=== PATIENT | male | born 1995 | race African-American/Black ===

== ENCOUNTER 2020-03-07 09:34 | Inpatient (IN) | payer OTHER ==
[~2020-03-07] VITALS: Ht 193 cm; Wt 138.6 kg
[2020-03-07] MEDS ORDERED: IBUPROFEN 800 MG (MOTRIN) TAB PO ONE (10:01)
[2020-03-07] MEDS ORDERED: ACETAMINOPHEN 500 MG TAB (TYLENOL) ONE (10:02)
[2020-03-07] MEDS ORDERED: LACTATED RINGERS 1,000 ML IV ONE ×2 (10:04→10:18)
[2020-03-07] MEDS ORDERED: dexAMETHasone 6 MG TAB (DECADRON) PO STA (10:23)
[2020-03-07 10:24] LABS: BASOPHILS % (AUTO) 0 % (0-10); EOSINOPHILS % (AUTO) 0 % (0-10); HEMATOCRIT 49 % (40-54); HEMOGLOBIN 16.1 G/DL (13.3-17.7); LYMPHOCYTES # (AUTO) 1.9 X 10^3 (1.0-4.0); LYMPHOCYTES % (AUTO) 21 % (12-44); MEAN CORPUSCULAR HEMOGLOBIN 26 PG (25-34); MEAN CORPUSCULAR HGB CONC 33 G/DL (32-36); MEAN CORPUSCULAR VOLUME 81 FL (80-99); MEAN PLATELET VOLUME 10.5 FL (7.4-10.4); MONOCYTES # (AUTO) 0.6 X 10^3 (0.0-1.0); MONOCYTES % (AUTO) 6 % (0-12); NEUTROPHILS # (AUTO) 6.9 X 10^3 (1.8-7.8); NEUTROPHILS % (AUTO) 73 % (42-75); PLATELET COUNT 203 10^3/uL (130-400); WHITE BLOOD COUNT 9.5 10^3/uL (4.3-11.0)
[2020-03-07 10:35] LABS: ALANINE AMINOTRANSFERASE 69 U/L (0-55); ALBUMIN 4.3 GM/DL (3.2-4.5); ALKALINE PHOSPHATASE 58 U/L (40-136); BILIRUBIN,TOTAL 0.6 MG/DL (0.1-1.0); BUN/CREATININE RATIO 16; CALCIUM 9.1 MG/DL (8.5-10.1); CARBON DIOXIDE 26 MMOL/L (21-32); CHLORIDE 98 MMOL/L (98-107); CREATININE SERUM 0.96 MG/DL (0.60-1.30); GFR ESTIMATED > 60; GLUCOSE 101 MG/DL (70-105); POTASSIUM 3.7 MMOL/L (3.6-5.0); SODIUM 135 MMOL/L (135-145)
--- NOTE | 2020-03-07 11:29 | Diagnostic Imaging Report ---
INDICATION: Shortness of breath. TIME OF EXAM: 11:10 a.m. COMPARISON: No prior studies are available for comparison. FINDINGS: There are patchy airspace infiltrates in the right upper lobe as well as the left upper and left lower lobe. Findings are consistent with pneumonia. This pattern can be seen with COVID. No effusion or pneumothorax is detected. Heart size is normal. IMPRESSION: Patchy bilateral airspace pulmonary infiltrates, consistent with pneumonia. This pattern can be seen with COVID pneumonia. Dictated by: Dictated on workstation # [id number]
--- NOTE | 2020-03-07 11:52 | ED Respiratory ---
General Chief Complaint: Fever-Adult/Adol Stated Complaint: SHORTNESS OF BREATH; COVID POSITIVE Nursing Triage Note: pt presents to ed with complaints of soa, fever, malaise, and generalized weakness. pt reports he tested positive for covid on 02/27. pt reports he has not taken any fever reducers today. Source: patient Exam Limitations: no limitations History of Present Illness Date Seen by Provider: Mar 07, 2020 Time Seen by Provider: 10:05 Initial Comments Here with increasing SOA. DX with Covid-19 on Feb, at [facility]. Patient reports that he is having shortness of air with any activity and feels like he's hyperventilating. He is still having Covid symptoms but has regained taste and smell 2 days ago. States that symptoms started 2 days prior to testing and he would be a day 10 currently. Timing/Duration: week, getting worse Severity: moderate Prior Episodes/Possible Cause: no prior episodes Modifying Factors: Worse With Activity; Improves With Rest Associated Symptoms: cough, fever/chills, muscle aches, shortness of breath Allergies and Home Medications Allergies Coded Allergies: No Known Drug Allergies (Unverified , 03/07/20) Home Medications No Active Prescriptions or Reported Meds Patient Home Medication List Home Medication List Reviewed: Yes Review of Systems Review of Systems Constitutional: see HPI, fever, weakness EENTM: see HPI Respiratory: cough, short of breath Cardiovascular: no symptoms reported Gastrointestinal: no symptoms reported Genitourinary: no symptoms reported Musculoskeletal: no symptoms reported All Other Systems Reviewed Negative Unless Noted: Yes Past Dvmicbh-Vxysmr-Ptspxx Hx Past Med/Social Hx: Reviewed Nursing Past Med/Soc Hx Patient Social History Alcohol Use: Denies Use Recreational Drug Use: No Smoking Status: Never a Smoker Recent Foreign Travel: No Contact w/Someone Who Travel: No Recent Infectious Disease Expo: No Recent Hopitalizations: No Seasonal Allergies Seasonal Allergies: No Past Medical History Surgeries: No Respiratory: No Cardiac: Yes High Cholesterol Neurological: No Genitourinary: No Gastrointestinal: No Musculoskeletal: No Endocrine: No Cancer: No Psychosocial: No Integumentary: No Blood Disorders: No Family Medical History Reviewed Nursing Family Hx No Pertinent Family Hx Physical Exam Vital Signs - First Documented 03/07/20 10:00 Temp 39.7 Pulse 131 Resp 26 B/P (MAP) 131/85 (100) Pulse Ox 96 O2 Delivery Nasal Cannula O2 Flow Rate 2.00 Capillary Refill : Less Than 3 Seconds Height: '" Weight: lbs. oz. kg; 40.00 BMI Method: General Appearance: WD/WN, no apparent distress HEENT: PERRL/EOMI, pharynx normal Neck: full range of motion, supple Respiratory: no accessory muscle use, crackles (few basilar bilateral) Cardiovascular: no murmur, tachycardia Gastrointestinal: non tender, soft Extremities: non-tender, normal inspection Neurologic/Psychiatric: alert, oriented x 3 Skin: normal color, warm/dry Progress/Results/Core Measures Suspected Sepsis Recent Fever Within 48 Hours: Yes Infection Criteria Present: Suspected New Infection New/Unexplained Altered Menta: No Sepsis Screen: Possible Sepsis Risk SIRS Temperature: Pulse: 131 Respiratory Rate: 26 Laboratory Tests 03/07/20 10:00: White Blood Count 9.5 Blood Pressure 131 /85 Mean: 100 Laboratory Tests 03/07/20 10:00: Creatinine 0.96, Platelet Count 203, Total Bilirubin 0.6 Results/Orders Lab Results Laboratory Tests Test 03/07/20 10:00 Range/Units White Blood Count 9.5 4.3-11.0 10^3/uL Red Blood Count 6.09 H 4.35-5.85 10^6/uL Hemoglobin 16.1 13.3-17.7 G/DL Hematocrit 49 40-54 % Mean Corpuscular Volume 81 80-99 FL Mean Corpuscular Hemoglobin 26 25-34 PG Mean Corpuscular Hemoglobin Concent 33 32-36 G/DL Red Cell Distribution Width 15.0 H 10.0-14.5 % Platelet Count 203 130-400 10^3/uL Mean Platelet Volume 10.5 H 7.4-10.4 FL Neutrophils (%) (Auto) 73 42-75 % Lymphocytes (%) (Auto) 21 12-44 % Monocytes (%) (Auto) 6 0-12 % Eosinophils (%) (Auto) 0 0-10 % Basophils (%) (Auto) 0 0-10 % Neutrophils # (Auto) 6.9 1.8-7.8 X 10^3 Lymphocytes # (Auto) 1.9 1.0-4.0 X 10^3 Monocytes # (Auto) 0.6 0.0-1.0 X 10^3 Eosinophils # (Auto) 0.0 0.0-0.3 10^3/uL Basophils # (Auto) 0.0 0.0-0.1 10^3/uL Sodium Level 135 135-145 MMOL/L Potassium Level 3.7 3.6-5.0 MMOL/L Chloride Level 98 98-107 MMOL/L Carbon Dioxide Level 26 21-32 MMOL/L Anion Gap 11 5-14 MMOL/L Blood Urea Nitrogen 15 7-18 MG/DL Creatinine 0.96 0.60-1.30 MG/DL Estimat Glomerular Filtration Rate > 60 BUN/Creatinine Ratio 16 Glucose Level 101 70-105 MG/DL Calcium Level 9.1 8.5-10.1 MG/DL Corrected Calcium 8.9 8.5-10.1 MG/DL Total Bilirubin 0.6 0.1-1.0 MG/DL Aspartate Amino Transf (AST/SGOT) 33 5-34 U/L Alanine Aminotransferase (ALT/SGPT) 69 H 0-55 U/L Alkaline Phosphatase 58 40-136 U/L C-Reactive Protein High Sensitivity 4.87 H 0.00-0.50 MG/DL Total Protein 8.0 6.4-8.2 GM/DL Albumin 4.3 3.2-4.5 GM/DL My Orders Orders - HAKAN LAI MD Ibuprofen Tablet (Motrin Tablet) (03/07/20 10:01) Acetaminophen Tablet (Tylenol Tablet) (03/07/20 10:02) Lactated Ringers (Lr 1000 Ml Iv Solution (03/07/20 10:04) Cbc With Automated Diff (03/07/20 10:18) Comprehensive Metabolic Panel (03/07/20 10:18) Hs C Reactive Protein (03/07/20 10:18) Ed Iv/Invasive Line Start (03/07/20 10:18) Lactated Ringers (Lr 1000 Ml Iv Solution (03/07/20 10:18) Chest 1 View, Ap/Pa Only (03/07/20 10:18) Dexamethasone Tablet (Decadron Tablet) (03/07/20 10:23) Medications Given in ED Current Medications Medications Dose Ordered Sig/Brett Route Start Time Stop Time Status Last Admin Dose Admin Acetaminophen 500 mg STK-MED ONCE .ROUTE 03/07/20 10:02 03/07/20 10:06 DC 03/07/20 10:13 1,000 MG Ibuprofen 800 mg STK-MED ONCE PO 03/07/20 10:01 03/07/20 10:06 DC 03/07/20 10:13 800 MG Lactated Ringer's 1,000 ml @ ud STK-MED ONCE IV 03/07/20 10:04 03/07/20 10:08 DC 03/07/20 10:12 999 MLS/HR Vital Signs/I&O 03/07/20 10:00 Temp 39.7 Pulse 131 Resp 26 B/P (MAP) 131/85 (100) Pulse Ox 96 O2 Delivery Nasal Cannula O2 Flow Rate 2.00 Capillary Refill : Less Than 3 Seconds Blood Pressure Mean: 100 Progress Note : Progress Note Seen and evaluated. IV, labs, LR 1 L bolus, ibuprofen 800 mg by mouth and chest x-ray ordered. Monitor patient. 1150: I have discussed the case with Dr. Young and she accepts patient for admission, inpatient status for pneumonia associated with COVID-19 as well as hypoxia. I did discuss the study drug, Remdesivir, and including risk and benefits and patient has consented for medication. This was discussed with Dr. Young at her request and she was notified that he has accepted option of study medicine. Decadron 6 mg by mouth given. Patient on 2 L via nasal cannula to keep sats greater than 94% and this is working well. Patient agrees to admission. Diagnostic Imaging Diagonstic Imaging: Xray Plain Films/CT/US/NM/MRI: chest Comments [facility]. [place], [place] NAME: MORIAH LI [facility] REC#: [id number] PT STATUS: REG ER : 1995 PHYSICIAN: HAKAN LAI MD ADMIT DATE: 03/07/20/ER Draft Date of Exam:03/07/20 CHEST 1 VIEW, AP/PA ONLY INDICATION: Shortness of breath. TIME OF EXAM: 11:10 a.m. COMPARISON: No prior studies are available for comparison. FINDINGS: There are patchy airspace infiltrates in the right upper lobe as well as the left upper and left lower lobe. Findings are consistent with pneumonia. This pattern can be seen with COVID. No effusion or pneumothorax is detected. Heart size is normal. IMPRESSION: Patchy bilateral airspace pulmonary infiltrates, consistent with pneumonia. This pattern can be seen with COVID pneumonia. Dictated on workstation # [id number] Dict: 03/07/20 1124 Trans: 03/07/20 1129 [id number] Interpreted by: ADELAIDA FARNSWORTH MD Electronically signed by: Departure Communication (Admissions) Time/Spoke to Admitting Phy: 11:50 Impression Primary Impression: 2019 novel coronavirus detected Additional Impression: Hypoxia Disposition: ADMITTED INPATIENT Condition: Stable Admissions Decision to Admit Reason: Admit from ER (General) Decision to Admit/Date: Mar 07, 2020 Time/Decision to Admit Time: 11:30 Departure-Patient Inst. Scripts No Active Prescriptions or Reported Meds HAKAN LAI MD Mar 07, 2020 11:52
--- NOTE | 2020-03-07 12:35 | NUR ---
ATTEMPTED TO CALL FOR REPORT. NO ANSWER X2 TIMES
--- NOTE | 2020-03-07 14:15 | NUR ---
GM LI admitted to room 428-1, with an admitting diagnosis of COVID19, HYPOXIA, on 03/07/20 from ED via WHEELCHAIR, accompanied by MED SURG WIRE SPRING RELAY ADJUSTER .GM LI introduced to surroundings, call light, bed controls, phone, TV, temperature control, lights, meal times, smoking policy, visitor policy, side rail policy, bathrooms and showers. Patient Rights given to patient in the handbook. GM LI verbalizes understanding that [facility] is not responsible for the loss or damage to any personal effects or valuables that are kept in the patients possession during their hospitalization. The following Patient Care Plans were discussed with the PATIENT: Discharge Planning, COVID/HYPOXIA and KNOWLEDGE DEFICIT. GM LI verbalizes understanding of Interdisciplinary Patient Education. Patient and/or family were informed about the Rapid Response Team and its purpose.
[2020-03-07 14:24] VITALS: BP 143/77
[2020-03-07] MEDS ORDERED: guaiFENesin/CODEINE (ROBITUSSIN AC) 10ML UDC PO PRN (14:30)
[2020-03-07] MEDS ORDERED: ONDANSETRON 4 MG/2 ML (SDV) Z0FRAN IV PRN (14:30)
[2020-03-07] MEDS ORDERED: REMDESIVIR INJ (NON-FORMULARY) 200 MG in NS (IVPB) 210 ML IV NR (14:30)
[2020-03-07] MEDS ORDERED: ACETAMINOPHEN 325 MG TABLET PO PRN (14:30)
[2020-03-07] MEDS: ENOXAPARIN 40 MG/0.4 ML (LOVENOX) SYR SC SCH (15:45)
[2020-03-07 15:57] VITALS: BP 129/70
[2020-03-07] MEDS ORDERED: CATHETER FLUSH 10 ML SYR IV PRN (17:15)
--- NOTE | 2020-03-07 18:12 | NUR ---
VERIFIED WITH DR WILSON THAT THE PATIENT IS SALINE LOCKED. NO IV FLUID ORDERED.
[2020-03-07 19:30] VITALS: BP 135/78
[2020-03-07] MEDS: CATHETER FLUSH 10 ML SYR IV SCH (21:20)
[2020-03-07 23:44] VITALS: BP 150/80
[2020-03-07 23:55] VITALS: BP 129/81
[2020-03-08 04:25] VITALS: BP 133/76
[2020-03-08] MEDS: CATHETER FLUSH 10 ML SYR IV SCH ×3 (05:28→20:43)
[2020-03-08 06:40] LABS: BASOPHILS % (AUTO) 0 % (0-10); EOSINOPHILS % (AUTO) 0 % (0-10); HEMATOCRIT 47 % (40-54); HEMOGLOBIN 15.4 G/DL (13.3-17.7); LYMPHOCYTES # (AUTO) 1.6 X 10^3 (1.0-4.0); LYMPHOCYTES % (AUTO) 16 % (12-44); MEAN CORPUSCULAR HEMOGLOBIN 26 PG (25-34); MEAN CORPUSCULAR HGB CONC 33 G/DL (32-36); MEAN CORPUSCULAR VOLUME 81 FL (80-99); MEAN PLATELET VOLUME 10.3 FL (7.4-10.4); MONOCYTES # (AUTO) 0.6 X 10^3 (0.0-1.0); MONOCYTES % (AUTO) 6 % (0-12); NEUTROPHILS % (AUTO) 79 % (42-75); PLATELET COUNT 228 10^3/uL (130-400); WHITE BLOOD COUNT 10.1 10^3/uL (4.3-11.0)
[2020-03-08 06:54] LABS: ALANINE AMINOTRANSFERASE 77 U/L (0-55); ALBUMIN 3.9 GM/DL (3.2-4.5); ALKALINE PHOSPHATASE 51 U/L (40-136); BILIRUBIN,TOTAL 0.5 MG/DL (0.1-1.0); BUN/CREATININE RATIO 18; CARBON DIOXIDE 27 MMOL/L (21-32); CHLORIDE 102 MMOL/L (98-107); GFR ESTIMATED > 60; GLUCOSE 111 MG/DL (70-105); SODIUM 139 MMOL/L (135-145); TOTAL PROTEIN 7.3 GM/DL (6.4-8.2)
[2020-03-08 07:33] VITALS: BP_SYST 118; BP_SYST 135; BP_DIAS 58; BP_DIAS 82
[2020-03-08] MEDS ORDERED: dexAMETHasone 6 MG TAB (DECADRON) PO SCH (08:00)
[2020-03-08] MEDS: dexAMETHasone 6 MG TAB (DECADRON) PO SCH (09:02)
[2020-03-08] MEDS ORDERED: MULT-1112 PO (10:08)
[2020-03-08] MEDS ORDERED: IBUP-2185 PO (10:08)
[2020-03-08] MEDS ORDERED: ACET-2267 PO (10:08)
--- NOTE | 2020-03-08 10:09 | NUR ---
SPOKE WITH THE PT ( I CALLED THE ROOM PHONE) TO COMPLETE THE MED REC PT DENIES TAKING ANY PRESCRIPTION MEDICATIONS OTC MEDS: TYLENOL IBUPROFEN MTV PT REQUESTED [facility] FOR HIS PREFERRED PHARMACY
[2020-03-08 12:20] VITALS: BP 135/77
--- NOTE | 2020-03-08 13:06 | History & Physical-Hospitalist ---
History of Present Illness HPI/Chief Complaint Pt is a 24yoCM with a PMH of HLD who presented to the ER due to SOB. He reports his symptoms started on 02/25 and he was diagnosed with COVID on 02/27. He has been having intermittent fevers and yesterday had worsening shortness of breath. He was more dyspneic with exertion prompting him to seek evaluation in the ER. He w as found to be hypoxic in the ER and was admitted for further care. Today he states he feeling about the same. Has regained his sense of taste but still does not have much of an appetite. He has not really been out of bed yet. Source: patient Exam Limitations: no limitations Date Seen 03/08/20 Time Seen by a Provider: 12:58 Attending Physician Lay Young MD PCP Unknown Referring Physician Date of Admission Mar 07, 2020 at 12:17 Home Medications & Allergies Home Medications Reviewed patient Home Medication Reconciliation performed by pharmacy medication reconciliations limited radiology technician and/or nursing. Patients Allergies have been reviewed. Allergies Allergies Coded Allergies No Known Drug Allergies (Unverified03/07/20) Past Nejhtup-Cugpbt-Fibtns Hx Past Med/Social Hx: Reviewed Nursing Past Med/Soc Hx Patient Social History Employed/Student: employed Alcohol Use: Denies Use Recreational Drug Use: No Smoking Status: Never a Smoker Recent Foreign Travel: No Contact w/other who traveled: No Recent Hopitalizations: No Recent Infectious Disease Expo: No Seasonal Allergies Seasonal Allergies: No Past Medical History Cardiac: High Cholesterol History of Blood Disorders: No Family History Reviewed Nursing Family Hx Cardiovascular disease 19 MOTHER Diabetes mellitus 19 FATHER No Pertinent Family Hx Review of Systems Constitutional: fever, malaise EENTM: other (transient loss of taste) Respiratory: cough, dyspnea on exertion, short of breath Cardiovascular: No chest pain Gastrointestinal: loss of appetite, nausea; No vomiting Genitourinary: no symptoms reported Musculoskeletal: no symptoms reported Skin: no symptoms reported Psychiatric/Neurological: No Symptoms Reported Physical Exam Physical Exam Vital Signs Vital Signs - First Documented 03/07/20 03/08/20 10:00 15:15 Temp 39.7 Pulse 131 Resp 26 B/P (MAP) 131/85 (100) Pulse Ox 96 O2 Delivery Nasal Cannula O2 Flow Rate 2.00 FiO2 28 Capillary Refill : Less Than 3 Seconds Height, Weight, BMI Height: '" Weight: lbs. oz. kg; 38.44 BMI Method: General Appearance: No Apparent Distress, Obese HEENT: PERRL/EOMI, Moist Mucous Membranes; No Scleral Icterus (L), No Scleral Icterus (R) Neck: Normal Inspection, Supple Respiratory: Lungs Clear, No Accessory Muscle Use, No Respiratory Distress Cardiovascular: Regular Rate, Rhythm, No JVD, No Murmur Gastrointestinal: Normal Bowel Sounds, Non Tender, Soft Extremity: No Calf Tenderness, No Pedal Edema Neurologic/Psychiatric: Alert, Oriented x3, Depressed Affect Skin: Normal Color, Warm/Dry Results Results/Procedures Labs Laboratory Tests 03/07/20 10:00 03/08/20 06:09 Patient resulted labs reviewed. Imaging: Reviewed Imaging Report Imaging [facility] [place] NAME: GM LI [facility] REC#: [id number] PT STATUS: ADM IN : 1995 PHYSICIAN: HAKAN LAI MD ADMIT DATE: 03/07/20 Signed Date of Exam:03/07/20 CHEST 1 VIEW, AP/PA ONLY INDICATION: Shortness of breath. TIME OF EXAM: 11:10 a.m. COMPARISON: No prior studies are available for comparison. FINDINGS: There are patchy airspace infiltrates in the right upper lobe as well as the left upper and left lower lobe. Findings are consistent with pneumonia. This pattern can be seen with COVID. No effusion or pneumothorax is detected. Heart size is normal. IMPRESSION: Patchy bilateral airspace pulmonary infiltrates, consistent with pneumonia. This pattern can be seen with COVID pneumonia. Dictated by: Dictated on workstation # [id number] Dict: 03/07/20 1124 Trans: 03/07/20 1523 [id number] Interpreted by: ADELAIDA FARNSWORTH MD Electronically signed by: ADELAIDA FARNSWORTH MD 03/07/20 1523 Assessment/Plan Admission Diagnosis Acute Hypoxic Respiratory Failure Admission Status: Inpatient Order (span 2 midnights) Reason for Inpatient Admission: see below Assessment and Plan Acute Hypoxic Respiratory Failure COVID19 Continue oxygen supplementation, wean as able MAT protocol, IS ordered Continue Remdesivir Discussed potential convalescent plasma, including risks and benefits and EUA status, he reports he would like to think about it before doing it Lovenox Decadon DVT ppx: Lovenox Diagnosis/Problems Diagnosis/Problems (1) Hyperlipidemia Qualifiers: Hyperlipidemia type: unspecified Qualified Codes: E78.5 - Hyperlipidemia, unspecified (2) 2019 novel coronavirus detected Status: Acute (3) Acute respiratory failure Status: Acute Qualifiers: Respiratory failure complication: hypoxia Qualified Codes: J96.01 - Acute respiratory failure with hypoxia Clinical Quality Measures DVT/VTE Risk/Contraindication: Risk Factor Score Per Nursin RFS Level Per Nursing on Admit: 1=Low/No VTE PPX LAY YOUNG MD Mar 08, 2020 13:06
[2020-03-08] MEDS: REMDESIVIR INJ (NON-FORMULARY) 100 MG in NS (IVPB) 230 ML IV SCH (14:54)
[2020-03-08 15:15] VITALS: BP 135/77
[2020-03-08 15:38] VITALS: BP 144/80
[2020-03-08] MEDS: ENOXAPARIN 40 MG/0.4 ML (LOVENOX) SYR SC SCH (16:03)
[2020-03-08 19:22] VITALS: BP 144/78
[2020-03-08] MEDS: RT-ALBUTEROL INHALER HFA (VENTOLIN HFA) 18 GM IH SCH (19:57)
[2020-03-09] VITALS (7 sets, daily range): BP systolic 127–149; BP diastolic 72–89
[2020-03-09] MEDS: RT-ALBUTEROL INHALER HFA (VENTOLIN HFA) 18 GM IH SCH ×4 (01:46→21:48)
[2020-03-09] MEDS: CATHETER FLUSH 10 ML SYR IV SCH ×3 (05:20→21:32)
[2020-03-09 06:28] LABS: BASOPHILS % (AUTO) 0 % (0-10); EOSINOPHILS % (AUTO) 0 % (0-10); HEMATOCRIT 45 % (40-54); HEMOGLOBIN 14.7 G/DL (13.3-17.7); LYMPHOCYTES # (AUTO) 1.5 X 10^3 (1.0-4.0); LYMPHOCYTES % (AUTO) 19 % (12-44); MEAN CORPUSCULAR HEMOGLOBIN 27 PG (25-34); MEAN CORPUSCULAR HGB CONC 33 G/DL (32-36); MEAN CORPUSCULAR VOLUME 81 FL (80-99); MEAN PLATELET VOLUME 10.4 FL (7.4-10.4); MONOCYTES # (AUTO) 0.7 X 10^3 (0.0-1.0); MONOCYTES % (AUTO) 9 % (0-12); NEUTROPHILS # (AUTO) 5.4 X 10^3 (1.8-7.8); NEUTROPHILS % (AUTO) 71 % (42-75); PLATELET COUNT 220 10^3/uL (130-400); WHITE BLOOD COUNT 7.6 10^3/uL (4.3-11.0)
[2020-03-09 06:39] LABS: ALBUMIN 3.8 GM/DL (3.2-4.5); CHLORIDE 105 MMOL/L (98-107); POTASSIUM 4.1 MMOL/L (3.6-5.0); SODIUM 141 MMOL/L (135-145)
[2020-03-09 06:40] LABS: CALCIUM 9.2 MG/DL (8.5-10.1)
[2020-03-09 06:41] LABS: GLUCOSE 125 MG/DL (70-105); TOTAL PROTEIN 7.2 GM/DL (6.4-8.2)
[2020-03-09 06:42] LABS: CARBON DIOXIDE 24 MMOL/L (21-32)
[2020-03-09 06:43] LABS: BILIRUBIN,TOTAL 0.4 MG/DL (0.1-1.0)
[2020-03-09 06:45] LABS: ALKALINE PHOSPHATASE 48 U/L (40-136); CREATININE SERUM 0.75 MG/DL (0.60-1.30); GFR ESTIMATED > 60
[2020-03-09 06:46] LABS: BUN/CREATININE RATIO 19
[2020-03-09 06:48] LABS: ALANINE AMINOTRANSFERASE 61 U/L (0-55)
[2020-03-09] MEDS: dexAMETHasone 6 MG TAB (DECADRON) PO SCH (09:19)
--- NOTE | 2020-03-09 10:55 | Progress Note - Hospitalist ---
Subjective HPI/CC On Admission Date Seen by Provider: Mar 09, 2020 Time Seen by Provider: 09:00 Pt is a 24yoCM with a PMH of HLD who presented to the ER due to SOB. He reports his symptoms started on 02/25 and he was diagnosed with COVID on 02/27. He has been having intermittent fevers and yesterday had worsening shortness of breath. He was more dyspneic with exertion prompting him to seek evaluation in the ER. He was found to be hypoxic in the ER and was admitted for further care. Today he states he feeling about the same. Has regained his sense of taste but still does not have much of an appetite. He has not really been out of bed yet. Subjective/Events-last exam Pt doing pretty well Tolerating antiviral for Covid Maintained on oxygen 2L per minute Has not made his decision about plasma infusion Review of Systems General: Fatigue, Malaise Neurological: Weakness Objective Exam Vital Signs Vital Signs Date Time Temp Pulse Resp B/P (MAP) Pulse Ox O2 Delivery O2 Flow Rate FiO2 03/09/20 20:10 35.5 66 18 149/89 (109) 94 Nasal Cannula 2.00 03/08/20 15:15 28 Capillary Refill : Less Than 3 Seconds General Appearance: No Apparent Distress, WD/WN HEENT: PERRL/EOMI, TMs Normal, Normal ENT Inspection, Pharynx Normal, Moist Mucous Membranes Neck: Full Range of Motion, Normal Inspection, Non Tender, Supple, Carotid Bruit Respiratory: Chest Non Tender, Lungs Clear, Normal Breath Sounds, No Accessory Muscle Use, No Respiratory Distress Cardiovascular: Regular Rate, Rhythm, No Edema, No Gallop, No JVD, No Murmur, Normal Peripheral Pulses Gastrointestinal: Normal Bowel Sounds, No Organomegaly, No Pulsatile Mass, Non Tender, Soft Back: Normal Inspection, No CVA Tenderness, No Vertebral Tenderness Extremity: Normal Capillary Refill, Normal Inspection, Normal Range of Motion, Non Tender, No Calf Tenderness, No Pedal Edema Neurologic/Psychiatric: Alert, Oriented x3, No Motor/Sensory Deficits, Normal Mood/Affect Skin: Normal Color, Warm/Dry Lymphatic: No Adenopathy Results/Procedures Lab Laboratory Tests 03/09/20 06:10 Patient resulted labs reviewed. Imaging: Reviewed Imaging Report Assessment/Plan Assessment and Plan Assess & Plan/Chief Complaint Assessment: COVID-19 pneumonia Hypoxia Obesity Plan: Oxygen Supportive care Antiviral Plasma if he is willing Clinical Quality Measures DVT/VTE Risk/Contraindication: Risk Factor Score Per Nursin RFS Level Per Nursing on Admit: 1=Low/No VTE PPX YARITZA MERCADO DO Mar 09, 2020 10:55
[2020-03-09] MEDS: REMDESIVIR INJ (NON-FORMULARY) 100 MG in NS (IVPB) 230 ML IV SCH (15:06)
[2020-03-09] MEDS: ENOXAPARIN 40 MG/0.4 ML (LOVENOX) SYR SC SCH (15:07)
[2020-03-10] MEDS: RT-ALBUTEROL INHALER HFA (VENTOLIN HFA) 18 GM IH SCH ×4 (03:00→18:18)
[2020-03-10 04:10] VITALS: BP 126/78
--- NOTE | 2020-03-10 05:41 | Progress Note - Hospitalist ---
Subjective HPI/CC On Admission Date Seen by Provider: Mar 10, 2020 Time Seen by Provider: 11:00 Pt is a 24yoCM with a PMH of HLD who presented to the ER due to SOB. He reports his symptoms started on 02/25 and he was diagnosed with COVID on 02/27. He has been having intermittent fevers and yesterday had worsening shortness of breath. He was more dyspneic with exertion prompting him to seek evaluation in the ER. He was found to be hypoxic in the ER and was admitted for further care. Today he states he feeling about the same. Has regained his sense of taste but still does not have much of an appetite. He has not really been out of bed yet. Subjective/Events-last exam Labs ok Patient feels good Watching Netflix to keep himself busy Gets dyspneic when walking in room Told him to start getting up and around in order to help build stamina and help wean O2 Lovenox maintained Monitor closely Review of Systems Pulmonary: Dyspnea, Cough Objective Exam Vital Signs Vital Signs Date Time Temp Pulse Resp B/P (MAP) Pulse Ox O2 Delivery O2 Flow Rate FiO2 03/10/20 15:48 36.8 90 20 134/71 (92) 94 Nasal Cannula 3.00 03/08/20 15:15 28 Capillary Refill : Less Than 3 Seconds General Appearance: No Apparent Distress, WD/WN, Chronically ill Respiratory: Chest Non Tender, Lungs Clear, Normal Breath Sounds, No Accessory Muscle Use, No Respiratory Distress, Decreased Breath Sounds Cardiovascular: Regular Rate, Rhythm, No Edema, No Gallop, No JVD, No Murmur, Normal Peripheral Pulses Neurologic/Psychiatric: Alert, Oriented x3, No Motor/Sensory Deficits, Normal Mood/Affect Results/Procedures Lab Laboratory Tests 03/10/20 05:35 Patient resulted labs reviewed. Imaging: Reviewed Imaging Report Assessment/Plan Assessment and Plan Assess & Plan/Chief Complaint Assessment: COVID-19 pneumonia Hypoxia Obesity Plan: Oxygen Supportive care Antiviral Ambulate in room Clinical Quality Measures DVT/VTE Risk/Contraindication: Risk Factor Score Per Nursin RFS Level Per Nursing on Admit: 1=Low/No VTE PPX YARITZA MERCADO DO Mar 10, 2020 05:41
[2020-03-10] MEDS: CATHETER FLUSH 10 ML SYR IV SCH ×3 (05:48→20:42)
[2020-03-10 06:16] LABS: BASOPHILS % (AUTO) 0 % (0-10); EOSINOPHILS % (AUTO) 0 % (0-10); HEMATOCRIT 46 % (40-54); LYMPHOCYTES # (AUTO) 2.1 X 10^3 (1.0-4.0); LYMPHOCYTES % (AUTO) 21 % (12-44); MEAN CORPUSCULAR HEMOGLOBIN 26 PG (25-34); MEAN CORPUSCULAR HGB CONC 32 G/DL (32-36); MEAN CORPUSCULAR VOLUME 81 FL (80-99); MEAN PLATELET VOLUME 10.1 FL (7.4-10.4); MONOCYTES # (AUTO) 0.9 X 10^3 (0.0-1.0); MONOCYTES % (AUTO) 9 % (0-12); NEUTROPHILS # (AUTO) 6.9 X 10^3 (1.8-7.8); NEUTROPHILS % (AUTO) 69 % (42-75); PLATELET COUNT 256 10^3/uL (130-400); WHITE BLOOD COUNT 9.9 10^3/uL (4.3-11.0)
[2020-03-10 06:28] LABS: ALBUMIN 3.6 GM/DL (3.2-4.5)
[2020-03-10 06:29] LABS: CHLORIDE 105 MMOL/L (98-107); POTASSIUM 3.9 MMOL/L (3.6-5.0); SODIUM 141 MMOL/L (135-145)
[2020-03-10 06:30] LABS: CALCIUM 8.8 MG/DL (8.5-10.1)
[2020-03-10 06:31] LABS: GLUCOSE 109 MG/DL (70-105); TOTAL PROTEIN 6.9 GM/DL (6.4-8.2)
[2020-03-10 06:32] LABS: CARBON DIOXIDE 24 MMOL/L (21-32)
[2020-03-10 06:33] LABS: BILIRUBIN,TOTAL 0.3 MG/DL (0.1-1.0)
[2020-03-10 06:34] LABS: ALKALINE PHOSPHATASE 49 U/L (40-136)
[2020-03-10 06:35] LABS: CREATININE SERUM 0.72 MG/DL (0.60-1.30); GFR ESTIMATED > 60
[2020-03-10 06:36] LABS: BUN/CREATININE RATIO 18
[2020-03-10 06:37] LABS: ALANINE AMINOTRANSFERASE 84 U/L (0-55)
[2020-03-10 07:24] VITALS: BP 124/72
[2020-03-10] MEDS: dexAMETHasone 6 MG TAB (DECADRON) PO SCH (09:10)
[2020-03-10 11:10] VITALS: BP 126/73
[2020-03-10] MEDS: REMDESIVIR INJ (NON-FORMULARY) 100 MG in NS (IVPB) 230 ML IV SCH (14:47)
[2020-03-10] MEDS: ENOXAPARIN 40 MG/0.4 ML (LOVENOX) SYR SC SCH (14:47)
[2020-03-10 15:48] VITALS: BP 134/71
[2020-03-10 19:58] VITALS: BP 134/75
[2020-03-10 23:20] VITALS: BP 142/91
[2020-03-11] MEDS: RT-ALBUTEROL INHALER HFA (VENTOLIN HFA) 18 GM IH PRN (02:16)
[2020-03-11] MEDS: CATHETER FLUSH 10 ML SYR IV SCH ×3 (05:12→20:45)
--- NOTE | 2020-03-11 06:51 | Progress Note - Hospitalist ---
Subjective HPI/CC On Admission Date Seen by Provider: Mar 11, 2020 Time Seen by Provider: 10:30 Pt is a 24yoCM with a PMH of HLD who presented to the ER due to SOB. He reports his symptoms started on 02/25 and he was diagnosed with COVID on 02/27. He has been having intermittent fevers and yesterday had worsening shortness of breath. He was more dyspneic with exertion prompting him to seek evaluation in the ER. He was found to be hypoxic in the ER and was admitted for further care. Today he states he feeling about the same. Has regained his sense of taste but still does not have much of an appetite. He has not really been out of bed yet. Subjective/Events-last exam Patient had been doing well Off O2 since yesterday afternoon but RN noted 88% on room air when she assessed him so he is back on O2 Patient agreeable for convalescent plasma now so ordered that Patient will get out of bed more and get more activity while in room No pain reported Eating and drinking well Review of Systems Pulmonary: Dyspnea Objective Exam Vital Signs Vital Signs Date Time Temp Pulse Resp B/P (MAP) Pulse Ox O2 Delivery O2 Flow Rate FiO2 03/11/20 15:21 36.2 71 16 148/72 (97) Nasal Cannula 1.00 03/11/20 15:04 96 03/08/20 15:15 28 Capillary Refill : Less Than 3 Seconds General Appearance: No Apparent Distress, WD/WN Respiratory: Chest Non Tender, Lungs Clear, Normal Breath Sounds, No Accessory Muscle Use, No Respiratory Distress, Decreased Breath Sounds Cardiovascular: Regular Rate, Rhythm, No Edema, No Gallop, No JVD, No Murmur, Normal Peripheral Pulses Neurologic/Psychiatric: Alert, Oriented x3, No Motor/Sensory Deficits, Normal Mood/Affect Results/Procedures Lab Laboratory Tests 03/11/20 12:15 Patient resulted labs reviewed. Imaging: Reviewed Imaging Report Assessment/Plan Assessment and Plan Assess & Plan/Chief Complaint Assessment: COVID-19 pneumonia Hypoxia Obesity Plan: Oxygen Supportive care Antiviral Ambulate in room 03/11/20: Ambulate in room Wean O2 if able Patient now willing to try convalescent plasma Clinical Quality Measures DVT/VTE Risk/Contraindication: Risk Factor Score Per Nursin RFS Level Per Nursing on Admit: 1=Low/No VTE PPX YARITZA MERCADO DO Mar 11, 2020 06:51
[2020-03-11 08:41] VITALS: BP 145/73
[2020-03-11] MEDS: RT-ALBUTEROL INHALER HFA (VENTOLIN HFA) 18 GM IH SCH ×3 (08:57→23:20)
[2020-03-11] MEDS: dexAMETHasone 6 MG TAB (DECADRON) PO SCH (09:55)
[2020-03-11 11:06] VITALS: BP 132/67
[2020-03-11 12:36] LABS: BASOPHILS # (AUTO) 0.1 10^3/uL (0.0-0.1); BASOPHILS % (AUTO) 0 % (0-10); EOSINOPHILS % (AUTO) 0 % (0-10); HEMATOCRIT 48 % (40-54); HEMOGLOBIN 16.1 G/DL (13.3-17.7); LYMPHOCYTES # (AUTO) 2.5 X 10^3 (1.0-4.0); LYMPHOCYTES % (AUTO) 16 % (12-44); MEAN CORPUSCULAR HEMOGLOBIN 27 PG (25-34); MEAN CORPUSCULAR HGB CONC 33 G/DL (32-36); MEAN CORPUSCULAR VOLUME 82 FL (80-99); MEAN PLATELET VOLUME 9.9 FL (7.4-10.4); MONOCYTES % (AUTO) 7 % (0-12); NEUTROPHILS % (AUTO) 77 % (42-75); PLATELET COUNT 307 10^3/uL (130-400); WHITE BLOOD COUNT 15.6 10^3/uL (4.3-11.0)
[2020-03-11 12:54] LABS: ALBUMIN 3.9 GM/DL (3.2-4.5)
[2020-03-11 12:55] LABS: CHLORIDE 107 MMOL/L (98-107); SODIUM 139 MMOL/L (135-145)
[2020-03-11 12:57] LABS: GLUCOSE 109 MG/DL (70-105); TOTAL PROTEIN 7.5 GM/DL (6.4-8.2)
[2020-03-11 12:58] LABS: CARBON DIOXIDE 20 MMOL/L (21-32)
[2020-03-11 12:59] LABS: BILIRUBIN,TOTAL 0.4 MG/DL (0.1-1.0)
[2020-03-11 13:00] LABS: ALKALINE PHOSPHATASE 52 U/L (40-136)
[2020-03-11 13:01] LABS: CREATININE SERUM 0.71 MG/DL (0.60-1.30); GFR ESTIMATED > 60
[2020-03-11 13:02] LABS: BUN/CREATININE RATIO 20; LYMPHOCYTES % (MANUAL) 19 %; MONOCYTES % (MANUAL) 3 %; NEUTROPHILS % (MANUAL) 78 %; RBC MORPH NORMAL
[2020-03-11 13:03] LABS: ALANINE AMINOTRANSFERASE 100 U/L (0-55)
[2020-03-11] MEDS: REMDESIVIR INJ (NON-FORMULARY) 100 MG in NS (IVPB) 230 ML IV SCH (15:20)
[2020-03-11 15:21] VITALS: BP 148/72
[2020-03-11] MEDS: ENOXAPARIN 40 MG/0.4 ML (LOVENOX) SYR SC SCH (16:30)
[2020-03-11 20:23] VITALS: BP 142/83
[2020-03-12 00:40] VITALS: BP 133/78
[2020-03-12] MEDS: RT-ALBUTEROL INHALER HFA (VENTOLIN HFA) 18 GM IH PRN (02:36)
[2020-03-12] MEDS: RT-ALBUTEROL INHALER HFA (VENTOLIN HFA) 18 GM IH SCH ×2 (02:37→06:15)
[2020-03-12 03:26] VITALS: BP 138/78
[2020-03-12] MEDS: CATHETER FLUSH 10 ML SYR IV SCH (04:54)
[2020-03-12 07:12] LABS: BASOPHILS % (AUTO) 0 % (0-10); EOSINOPHILS # (AUTO) 0.1 10^3/uL (0.0-0.3); EOSINOPHILS % (AUTO) 0 % (0-10); HEMATOCRIT 47 % (40-54); HEMOGLOBIN 14.9 G/DL (13.3-17.7); LYMPHOCYTES % (AUTO) 23 % (12-44); MEAN CORPUSCULAR HEMOGLOBIN 26 PG (25-34); MEAN CORPUSCULAR HGB CONC 32 G/DL (32-36); MEAN CORPUSCULAR VOLUME 82 FL (80-99); MEAN PLATELET VOLUME 9.8 FL (7.4-10.4); MONOCYTES % (AUTO) 8 % (0-12); NEUTROPHILS # (AUTO) 8.7 X 10^3 (1.8-7.8); NEUTROPHILS % (AUTO) 68 % (42-75); PLATELET COUNT 282 10^3/uL (130-400); WHITE BLOOD COUNT 12.8 10^3/uL (4.3-11.0)
[2020-03-12 07:31] LABS: ALANINE AMINOTRANSFERASE 101 U/L (0-55); ALBUMIN 3.5 GM/DL (3.2-4.5); ALKALINE PHOSPHATASE 50 U/L (40-136); BILIRUBIN,TOTAL 0.3 MG/DL (0.1-1.0); BUN/CREATININE RATIO 16; CALCIUM 8.7 MG/DL (8.5-10.1); CARBON DIOXIDE 23 MMOL/L (21-32); CHLORIDE 107 MMOL/L (98-107); CREATININE SERUM 0.73 MG/DL (0.60-1.30); GFR ESTIMATED > 60; GLUCOSE 122 MG/DL (70-105); POTASSIUM 3.8 MMOL/L (3.6-5.0); SODIUM 139 MMOL/L (135-145); TOTAL PROTEIN 6.7 GM/DL (6.4-8.2)
[2020-03-12 08:00] VITALS: BP 134/80
[2020-03-12] MEDS ORDERED: FLU QUADRIvalent (3YOA+) 60 mcg/0.5 ml 2020-21 (AFLURIA) IM ONE (08:00)
[2020-03-12] MEDS: dexAMETHasone 6 MG TAB (DECADRON) PO SCH (09:43)
[2020-03-12 13:23] VITALS: BP 134/80
--- NOTE | 2020-03-13 16:19 | Discharge Summary ---
Discharge Summary Hospital Course Problems/Dx: (1) Acute respiratory failure due to COVID-19 Status: Acute (2) Acute respiratory failure Status: Acute Qualifiers: Qualified Codes: J96.01 - Acute respiratory failure with hypoxia (3) 2019 novel coronavirus detected Status: Acute (4) Obesity Status: Chronic Qualifiers: Hospital Course Date of Admission: Mar 07, 2020 at 12:17 Admission Diagnosis : acute respiratory failure due to COVID-19 Family Physician/Provider: Date of Discharge: 03/13/20 Discharge Diagnosis: acute respiratory failure due to COVID-19 Hospital Course: Catracho Goodwin is a 24-year-old male who was admitted with acute respiratory failure due to COVID-19. He initially required supplemental oxygen. He was mare ated with Decadron and Remdesivir. His oxygen requirement resolved. There was consideration for use of convalescent plasma but due to his improvement this was not pursued. He was discharged home in stable condition. Labs and Pending Lab Test: Home Meds Active Reported Centrum Chewables Adults Tab (Multivit-Min/Iron/Folic/Vit K1) 1 Each Tab.chew 1 Each PO DAILY Tylenol Extra Strength (Acetaminophen) 500 Mg Tablet 1,000 Mg PO Q6H PRN Ibuprofen 200 Mg Capsule 400-600 Mg PO Q8H PRN Assessment/Pt Instructions take medications as prescribed. Follow up with her primary care physician. Return with worsening shortness of breath. Discharge Planning: <30 minutes discharge planning Discharge Instructions Discharge Diet: No Restrictions Activity as Tolerated: Yes Discharge Physical Examination Vital Signs Vital Signs Date Time Temp Pulse Resp B/P (MAP) Pulse Ox O2 Delivery O2 Flow Rate FiO2 03/12/20 13:23 36.4 63 18 134/80 94 Room Air 03/11/20 15:21 1.00 03/08/20 15:15 28 General Appearance: No Apparent Distress, Obese HEENT: PERRL/EOMI, Pharynx Normal Respiratory: Lungs Clear, Normal Breath Sounds, No Respiratory Distress Cardiovascular: Regular Rate, Rhythm, No Edema, No Murmur Gastrointestinal: Normal Bowel Sounds, Non Tender, Soft Extremity: Normal Inspection, Non Tender, No Pedal Edema Skin: Normal Color, Warm/Dry Neurologic/Psychiatric: Alert, Oriented x3, No Motor/Sensory Deficits, Normal Mood/Affect Allergies: Coded Allergies: No Known Drug Allergies (Unverified , 03/07/20) Discharge Summary Date of Admission Mar 07, 2020 at 12:17 Date of Discharge Mar 12, 2020 at 13:05 Discharge Date: Mar 12, 2020 Discharge Time: 13:05 Admission Diagnosis Acute Hypoxic Respiratory Failure Discharge Diagnosis (1) Acute respiratory failure due to COVID-19 Status: Acute (2) Acute respiratory failure Status: Acute Qualifiers: Qualified Codes: J96.01 - Acute respiratory failure with hypoxia (3) 2019 novel coronavirus detected Status: Acute (4) Obesity Status: Chronic Qualifiers: Clinical Quality Measures DVT/VTE Risk/Contraindication: Risk Factor Score Per Nursin RFS Level Per Nursing on Admit: 1=Low/No VTE PPX DIEGO HUSAIN MD Mar 13, 2020 16:19
== END 2020-03-12 13:05 | disposition home or self-care (01) | DRG 177 ==
LOC: ER 09:38 → 4TH 12:17
PROVIDERS: ADMIT Family Medicine; ATTEND Family Medicine
PROC: XW033E5 Introduction of Remdesivir Anti-infective into Peripheral Vein, Percutaneous Approach, New Technology Group 5 (ICD-10-PCS; principal; 2020-03-07)
DX: U07.1 COVID-19 (principal); J12.89 Other viral pneumonia; J96.01 Acute respiratory failure with hypoxia; Z68.41 Body mass index [BMI] 40.0-44.9, adult; E66.9 Obesity, unspecified; E78.00 Pure hypercholesterolemia, unspecified; E78.5 Hyperlipidemia, unspecified
CPT/HCPCS: 36415; 71045; 80053; 85007; 85025; 85027; 86141; 86850; 86900; 86901; 94640; 94664; 94760